=== PATIENT | male | born 1975 | race African-American/Black ===

== ENCOUNTER 2020-01-07 13:45 | Emergency (ER) | payer MEDICAID ==
[~2020-01-07] VITALS: Ht 182.9 cm; Wt 72.7 kg
[~2020-01-07 13:45] MED LIST: ANUSOL HC CREAM30 GM TOP; ANUSOL-HC SUPPO25 MG RC; BACTRIM DS 8001 TAB PO; BACTROBAN 22GM22 GM NAS; CEPHALEXIN500 M1 PO; LORTAB 5/500 501 TAB PO; NO HOME MEDICATIONS; NORCO 325 MG-7.1 TAB PO; SEPTRA DS 8001 TAB PO
[2020-01-07 13:50] VITALS: TEMP 97.6
[2020-01-07 14:02] LABS: BASO # 0.1 (0.0-0.2); BASO % 0.5 % (0.0-2.0); EOS # 0.2 (0.0-0.7); EOS % 1.7 % (0-4.0); GRAN # 6.9 (1.4-6.5); GRAN % 63.2 % (42.2-75.2); HEMATOCRIT 44.9 % (42.0-52.0); HEMOGLOBIN 15.8 g/dl (13.5-18.0); LYMPH # 3.2 (1.2-3.4); MEAN CELL VOLUME 90 fl (80.0-100.0); MEAN CORPUSCULAR HEMOGLOBIN 32 pg (27.0-31.0); MEAN CORPUSCULAR HGB CONC 35 g/dl (33.0-37.0); MEAN PLATELET VOLUME 8.8 fl (7.4-10.4); MONO # 0.6 (0.1-0.6); MONO % 5.2 % (1.7-9.3); PLATELET COUNT 345 K/mm3 (130-400); RED BLOOD COUNT 4.99 M/mm3 (4.20-5.60); REDCELL DISTRIBUTION WIDTH-CV 13.6 % (11.5-14.5)
[2020-01-07 14:14] LABS: ALANINE AMINOTRANSFERASE 17 U/L (4-49); ALBUMIN 4.4 gm/dL (3.5-5.0); ALCOHOL(ethanol),MEDICAL 142 mg/dL; ALKALINE PHOSPHATASE 81 U/L (50-136); ANION GAP 12 mmol/L (7-16); AST,SGOT 31 U/L (15-37); BILIRUBIN,TOTAL 0.6 mg/dL (0.0-1.0); BLOOD UREA NITROGEN 11 mg/dL (9-20); CALCIUM 9.4 mg/dL (8.4-10.2); CARBON DIOXIDE 21 mmol/L (22-30); CHLORIDE 104 mmol/L (98-107); CREATININE, serum 1.06 (0.66-1.25); GLUCOSE 157 mg/dL (74-106); LIPASE 22 U/L (23-300); POTASSIUM 3.2 mmol/L (3.4-5.0); SODIUM 137 mmol/L (137-145); TOTAL PROTEIN 7.2 gm/dL (6.4-8.2)
[2020-01-07 14:19] LABS: C-REACTIVE PROTEIN < 0.5 mg/dL (0.0-0.9)
[2020-01-07 15:40] LABS: TRICYCLIC ANTIDEPRESS URINE NEGATIVE
[2020-01-07 15:47] LABS: COLLECTION METHOD CATHETER
[2020-01-07 15:52] LABS: MUCOUS Present /lpf; PH 7 (5-8); SQUAMOUS EPITHELIAL None Seen /hpf; URINE APPEARANCE Clear; URINE BACTERIA None Seen /hpf; URINE BILIRUBIN Negative (NEGATIVE); URINE BLOOD Negative (NEGATIVE); URINE COLOR Yellow; URINE GLUCOSE Negative (NEGATIVE); URINE KETONE Negative (NEGATIVE); URINE LEUKOCYTE ESTERASE Negative (NEGATIVE); URINE NITRATE Negative (NEGATIVE); URINE PROTEIN(semi-quant) Negative (NEGATIVE); URINE RBC 0-2 /hpf; URINE UROBILINOGEN Negative (NEGATIVE)
[2020-01-07 17:26] VITALS: BP 166/100; PULSE 88
== END 2020-01-07 17:30 | disposition home or self-care (01) ==
LOC: COL.ER 13:45
PROVIDERS: Physician Assistant
DX: F15.10 Other stimulant abuse, uncomplicated (principal); F14.10 Cocaine abuse, uncomplicated; F12.10 Cannabis abuse, uncomplicated; F10.129 Alcohol abuse with intoxication, unspecified; R41.82 Altered mental status, unspecified; Y90.6 Blood alcohol level of 120-199 mg/100 ml
CPT/HCPCS: J1885; J2310; J2405; J7030